=== PATIENT | male | born 1955 ===

== ENCOUNTER 2017-03-12 10:31 | Day surgery (SDC) | payer MEDICARE ==
[2017-03-12] MEDS ORDERED: MIDAZOLAM HCL 2MG/2ML VIAL IV ONE (13:36)
[2017-03-12] MEDS ORDERED: LIDOCAINE 2% MDV (20MG/ML) 20ML VIAL IV ONE (13:36)
[2017-03-12] MEDS ORDERED: PROPOFOL 10 MG/ML VIAL IV ONE (13:36)
--- NOTE | 2017-03-16 15:40 | Operative Note ---
DATE OF SURGERY: 03/12/2017 REQUESTING PHYSICIAN: QUANG Martinez SURGEON: Karen Johansen MD POSTOPERATIVE DIAGNOSES: 1. Left-sided colonic diverticulosis. 2. Otherwise normal colon. OPERATION: COLONOSCOPY and exam. REASON FOR PROCEDURE: This is a 61-year-old male with a history of recurrent diarrhea presenting for colonoscopy. SEDATION: Sedation as per anesthesia. Pulse oximetry was monitored throughout the duration of the procedure to maintain O2 saturation of 90% or greater. Supplemental oxygen was administered via nasal cannula. Cardiac and vital signs were monitored throughout the duration of the procedure and they were stable. PROCEDURE: Description of the procedure of colonoscopy, risks, and alternatives to the procedure including the risk of bleeding and perforation among others were explained to the patient who voiced understanding and agreed to have the procedure done. A physical examination was performed and the patient was found stable for sedation. The patient was then placed in the left lateral position and sedation was initiated. Digital rectal exam was performed and showed small external hemorrhoids with no palpable rectal masses. A lubricated Olympus PCF-180AL colonoscope was then inserted into the rectum under direct visualization and was advanced to the cecum without difficulty. The ileocecal valve and appendiceal orifice were identified and photographed. The colonic mucosa was carefully examined upon insertion of the colonoscope. There were scattered diverticula noted in the sigmoid and descending colon. There were no other lesions noted. The colonoscope was then withdrawn while carefully examining the colonic mucosal surfaces. No other lesions were noted. Random colon biopsies were obtained to rule out microscopic colitis. In the rectum, retroflexion was performed and grade 1 internal hemorrhoids were noted. The colonoscope was then withdrawn and the procedure was terminated. The patient tolerated the procedure well without any complications. The patient remained with stable vital signs and was sent to the recovery room. PLAN AND RECOMMENDATIONS: 1. The patient is to be on a high-fiber diet. 2. The patient is to have repeat colonoscopy for screening in 10 years. Thank you for allowing me to participate in the care of this patient. Karen Johansen MD CC: QUANG Martinez [facility]
== END 2017-03-12 12:45 | disposition home or self-care (01) ==
LOC: HOP 10:31
PROVIDERS: ATTEND Internal Medicine Gastroenterology
DX: R19.7 Diarrhea, unspecified (principal); K57.30 Diverticulosis of large intestine without perforation or abscess without bleeding; K64.4 Residual hemorrhoidal skin tags